=== PATIENT | male | born 1980 | race American Indian/Alaskan Native ===

== ENCOUNTER 2016-09-17 15:24 | Emergency (ER) | payer MEDICARE ==
[2016-09-17 16:18] LABS: Basophils % (Auto) 0.9 % (0.0-1.8); Hematocrit 47.2 % (35.5-45.6); Hemoglobin 15.7 gm/dl (11.8-15.2); Mean Corpuscular HGB Conc 33 % (32-34); Mean Corpuscular Hemoglobin 31 pg (28-32); Mean Corpuscular Volume 95 fl (84-94); Platelet Count 185 K/mm3 (140-440); Red Blood Count 4.99 M/mm3 (3.65-5.03); Red Cell Distribution Width 14.2 % (13.2-15.2); White Blood Count 6.4 K/mm3 (4.5-11.0)
[2016-09-17 16:30] LABS: Anion Gap 21 mmol/L; BUN/Creatinine Ratio 7.85; Blood Urea Nitrogen 11 mg/dL (9-20); Calcium 9.5 mg/dL (8.4-10.2); Carbon Dioxide 24 mmol/L (22-30); Chloride 101.7 mmol/L (98-107); Glucose 95 mg/dL (75-100); Sodium 143 mmol/L (137-145)
--- NOTE | 2016-09-17 16:53 | XRay Report ---
ROUTINE CHEST, TWO VIEWS: PA and lateral views demonstrate the heart and mediastinal contour to be of normal size and shape. The lungs are clear and fully expanded and the soft tissues and bony structures are normal. IMPRESSION: Normal study.
[2016-09-17] MEDS ORDERED: MUCINEX ER PO ONE (21:12)
[2016-09-17] MEDS ORDERED: VALIUM IM ONE (21:12)
[2016-09-17] MEDS ORDERED: TESSALON PERLES PO ONE (21:12)
[2016-09-17] MEDS ORDERED: LIDOCAINE VISCOUS 2% PO ONE (21:12)
[2016-09-17 21:45] VITALS: BP 145/99
[2016-09-17] MEDS ORDERED: MILK OF MAGNESIA PO PRN (22:23)
[2016-09-17] MEDS ORDERED: DULCOLAX PR PRN (22:23)
[2016-09-17] MEDS ORDERED: TYLENOL PO PRN (22:23)
[2016-09-17] MEDS ORDERED: ZOFRAN IV PRN (22:23)
--- NOTE | 2016-09-17 22:29 | Emergency Department Report ---
HPI - General Chief Complaint: Dyspnea/Respdistress Time Seen by Provider: 09/17/16 20:57 - HPI HPI: The patient is a 36-year-old male who presents for evaluation of chest pain and cough. The patient reports chest pain and cough for the past 4 days, cough nonproductive, chest pain midsternal, 7/10 in severity, aching in quality, exacerbated with coughing. He also reports associated shortness of the throat for the past one day, itching in quality, moderate in severity, exacerbated with swallowing and coughing. The patient denies trauma to the chest wall, fever, dyspnea, hemoptysis, neck stiffness, dysphagia, stridor, drooling, difficulty tolerating secretions, dysphonia, hoarseness of voice, abdominal pain. ED Past Medical Hx - Past Medical History Previous Medical History?: Yes Hx HIV: Yes - Surgical History Past Surgical History?: Yes Additional Surgical History: fissurectomy - Social History Smoking Status: Never Smoker Substance Use Type: Marijuana - Medications Home Medications: Home Medications Medication Instructions Recorded Confirmed Last Taken Type Benzonatate [Tessalon Perles] 100 mg PO Q8HR #14 capsule 09/17/16 Unknown Rx guaiFENesin [Mucinex] 600 mg PO Q6HR #20 tab.er.12h 09/17/16 Unknown Rx traMADol [Ultram 50 MG tab] 50 mg PO Q6HR PRN #15 tablet 09/17/16 Unknown Rx ED Review of Systems ROS: Stated complaint: CHEST PAIN /SOB/DIZZINESS Other details as noted in HPI Constitutional: denies: fever ENT: denies: throat or neck pain Respiratory: reports cough, denies shortness of breath Cardiovascular: reports chest pain Endocrine: denies unexplained weight loss or gain Gastrointestinal: denies: abdominal pain, nausea Genitourinary: denies: dysuria Musculoskeletal: denies: leg swelling Skin: denies: rash Neurological: denies: headache Hematological/Lymphatic: denies: easy bleeding or easy bruising Psych: denies sadness or hopelessness Physical Exam - Physical Exam Vital Signs: Vital Signs 09/17/16 09/17/16 09/17/16 15:38 20:52 21:00 Temperature 98.3 F Pulse Rate 85 78 85 Respiratory 18 16 21 Rate Blood Pressure 148/99 133/94 Blood Pressure 142/93 [Left] O2 Sat by Pulse 96 99 100 Oximetry 09/17/16 21:10 Temperature Pulse Rate 75 Respiratory 15 Rate Blood Pressure 142/93 Blood Pressure [Left] O2 Sat by Pulse 98 Oximetry Physical Exam: General: well-nourished, well-developed, no acute distress Head: Normocephalic, atraumatic Eyes: normal sclera ENT: Mucous membranes are pink and moist, bilateral nasal congestion present, cobblestoning of the posterior oropharynx is present, mild erythema present as well, no tonsillar erythema, swelling or exudates, no soft palate or uvula deviation Neck: trachea midline, neck supple, No neck stiffness, no cervical adenopathy Respiratory: Breath sounds equal bilaterally, no wheezing, rales, or rhonchi Cardio: S1 and S2 present, no murmurs, rubs, gallops, capillary refill is brisk Abdomen: Normoactive bowel sounds, soft abdomen, no tenderness Chest WALL/Back: No tenderness to palpation of the chest wall, no CVA tenderness with percussion Musc: No pitting edema Skin: No rash Neuro: no facial drooping, normal speech Psych: Normal affect ED Course Vital Signs 09/17/16 09/17/16 09/17/16 15:38 20:52 21:00 Temperature 98.3 F Pulse Rate 85 78 85 Respiratory 18 16 21 Rate Blood Pressure 148/99 133/94 Blood Pressure 142/93 [Left] O2 Sat by Pulse 96 99 100 Oximetry 09/17/16 21:10 Temperature Pulse Rate 75 Respiratory 15 Rate Blood Pressure 142/93 Blood Pressure [Left] O2 Sat by Pulse 98 Oximetry ED Medical Decision Making - Lab Data Result diagrams: 09/17/16 15:51 09/17/16 15:51 - Medical Decision Making The patient was seen and examined by myself. The patient is placed on a youth nutritional monitor and continuous pulse ox. On initial evaluation, the patient was found to be in no distress. Evaluation orders were placed. EKG was negative for findings suggestive of acute cardiac infarct. The patient is given Tessalon Perles for their cough and Mucinex for nasal congestion. Is given an IM dose of analgesia for his pain. Lab results were not concerning. Chest x- ray is negative for pulmonary vessel congestion, pleural effusion, focal consolidation, or other acute cardio pulmonary disease process. The patient was reevaluated and reported that their symptoms were markedly improved. On reexamination the patient is found to have normal respiratory rate and O2 sat on pulse oximetry, with no costal retractions or diminishment of breath sounds on auscultation. The patient is stable for discharge with outpatient follow- up. The patient is given follow-up and return instructions. The patient expressed understanding and agreed with the plan. The patient is discharged in stable condition. Critical care attestation.: If time is entered above; I have spent that time in minutes in the direct care of this critically ill patient, excluding procedure time. ED Disposition Clinical Impression: Upper respiratory infection, viral, Acute chest pain, Acute viral syndrome Disposition: DISCHARGED TO HOME OR SELFCARE Is pt being admited?: No Does the pt Need Aspirin: No Condition: Stable Instructions: Chest Pain (ED), Costochondritis (ED), Viral Syndrome (ED), Upper Respiratory Infection (ED) Additional Instructions: There are no findings on chest x-ray that were concerning for tuberculosis. Referrals: PRIMARY CARE, [Primary Care Provider] - 3-5 Days Time of Disposition: 21:07
[2016-09-18] MEDS ORDERED: DUONEB 0.5 MG-3 MG/3 ML SOLN IH SCH (02:00)
[2016-09-18] MEDS ORDERED: LOVENOX SUB-Q SCH (10:00)
== END 2016-09-17 22:08 | disposition home or self-care (01) ==
LOC: ED 15:24
DX: B34.9 Viral infection, unspecified (principal); J06.9 Acute upper respiratory infection, unspecified; R07.2 Precordial pain; F12.10 Cannabis abuse, uncomplicated; Z21 Asymptomatic human immunodeficiency virus [HIV] infection status
CPT/HCPCS: 36415; 71020; 80048; 84484; 85025; 93005; 93010; 96372; 99284; J3360